=== PATIENT | female | born 1965 | race Asian ===

== ENCOUNTER 2020-07-01 11:45 | Observation (INO) | payer OTHER ==
[~2020-07-01] VITALS: Ht 165.1 cm; Wt 63.5 kg
[2020-07-01 11:51] VITALS: Ht 165.1 cm; Wt 63.5 kg
--- NOTE | 2020-07-01 11:52 | NUR ---
PT REPORTS FEELING A SHARP POKING SENSATION INSIDE THROAT. SHE REPORTS EATING FISH ON MONDAY AND HAS FELT LIKE A BONE IS STUCK INSIDE HER THROAT. SHE HAS EATEN FOOD AND DRANK LIQUIDS SINCE THEN BUT STILL FEELS DISCOMFORT
--- NOTE | 2020-07-01 12:09 | NUR ---
MSE COMPLETED BY DR MITCHELL
--- NOTE | 2020-07-01 12:56 | NUR ---
PT RESTING COMFORTABLY ON GURNEY, PLACED ON PULSE OX O2 SAT 98% RESP E/U, RR 16
--- NOTE | 2020-07-01 15:03 | NUR ---
PT IS AAOX4, NAD NOTED, VITALS STABLE.
[2020-07-01 15:21] LABS: BASOPHIL % 0.2 % (0.2-1.3); PLATELET COUNT 205 x10^3mcL (179-408); RED CELL DISTRIBUTION WIDTH 14.4 % (12.3-17.7)
--- NOTE | 2020-07-01 15:22 | NUR ---
EXPLAINED TO PT IN [facility] THAT SHE WILL NEED GI CONSULT TO DISCUSS POC REGARDING FOREIGN BODY TO THROAT. PER DR PAULA LANDERS WILL BE ARRIVING TO ED IN LESS THAN 3 HRS. PT INFORMED OF SAME AND VERBALIZED UNDERSTANDING, STATING SHE WILL WAIT HERE.
[2020-07-01 15:23] LABS: CALCIUM 9.7 mg/dL (8.5-10.1); CARBON DIOXIDE 30.9 mmol/L (21-32); CHLORIDE SERUM 98 mmol/L (98-107); CREATININE SERUM 0.6 mg/dL (0.6-1.0); GFR1 > 60 mL/min; GLUCOSE SERUM 103 mg/dL (74-106); POTASSIUM SERUM 3.7 mmol/L (3.5-5.1); SODIUM SERUM 137 mmol/L (136-145)
--- NOTE | 2020-07-01 17:38 | NUR ---
DR LANDERS, GI SPECIALIST AT BEDSIDE. EXPLAINED PLANNED PROCEDURE TO PT. PT VERBALIZED UNDERSTANDING OF RISKS, BENEFITS, AND PROCEDURE ITSELF.
--- NOTE | 2020-07-01 19:04 | NUR ---
PT SIGNED CONSENT FOR PROCEDURE. TAKEN TO OR BY STAS LEYVA. PT AWAKE ALERT, RESP E/U, NO DISTRESS.
--- NOTE | 2020-07-01 20:46 | NUR ---
PATIENT CAME FROM OUTPATIENT TO [facility] FLOOR THROUGH [facility] ACCOMPANIED BY RN. PATIENT AMBULATED TO BED BY HERSELF. ON FULL LIQUID DIET, SHE WAS GIVEN WARM WATER. HER VITAL WAS CHECKED. TEMP 97.8; BP 157/88 (MAP 107); HR 80; RR 18; O2 SAT 94%. A/O X 4; [place] SPEAKING ONLY (NO FAROESE). UTILIZED [employer] EMBEDDED SOFTWARE DEVELOPMENT ENGINEER TO COMMUNICATE WITH HER. IV @ TRINO 2O G PATENT AND INTACT. WILL CONTACT FAMILY TO PICK HER UP.
[2020-07-01 20:50] VITALS: BP 146/68
--- NOTE | 2020-07-01 21:05 | NUR ---
FAMILY WAS CALLED. (HEMALATHA VALENTE) [phone]. SINHALA SPEAKING; UNABLE TO SPEAK EQUATORIAL GUINEAN. TRANSLATED BY RN ARVIN SORIANO. TO PICK PATIENT UP IN 30 MINUTES. SAID HE WAS ALREADY AT THE HOSPITAL TO WAITHING FOR THE PATIENT.
--- NOTE | 2020-07-01 21:18 | NUR ---
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 SHE WAS OKAY TO GET D/C. SOON SHE HEARD THAT SHE CHANGED HER CLOTHES IMMEDIATELY. NURSE TRIED TO RECHECK HER VITAL SIGNS; SHE REFUSED. PATIENT WAS GIVEN DISCHARGED INFORMATION SHE WAS READY TO LEAVE THE HOSPITAL. HER IV WAS D/C. HER ARM BAND WAS REMOVED. INSTRUCTION TO UMB THE PAIN ON THE TROAT WAS GIVEN: GARGLE AND USE LOZENGES. ALL PATIENT BELONGING WITH HER WHEN SHE LEFT. ACCOMPANIED THE PATIENT DOWN TO THE PARKING LOT WHERE SHE WAS PICKED UP BY HER .
== END 2020-07-01 21:18 | disposition home or self-care (01) ==
LOC: ED 11:45 → MU 17:05
PROVIDERS: Specialist; ADMIT Internal Medicine; ATTEND Internal Medicine
DX: T17.228A Food in pharynx causing other injury, initial encounter (principal); W45.8XXA Other foreign body or object entering through skin, initial encounter; Y93.89 Activity, other specified; Y92.89 Other specified places as the place of occurrence of the external cause; Y99.8 Other external cause status; Z20.822 Contact with and (suspected) exposure to COVID-19
CPT/HCPCS: 43235; G0378; J0330; J2405; J2704; J2710; J3010; J3490; J7120

== ENCOUNTER 2020-07-03 18:39 | Emergency (ER) | payer OTHER ==
[~2020-07-03] VITALS: Ht 165.1 cm; Wt 62.6 kg
[2020-07-03 18:56] VITALS: Ht 165.1 cm; Wt 62.6 kg
[2020-07-03 19:47] LABS: CALCIUM 8.9 mg/dL (8.5-10.1); CARBON DIOXIDE 26.6 mmol/L (21-32); CHLORIDE SERUM 100 mmol/L (98-107); CREATININE SERUM 0.5 mg/dL (0.6-1.0); GFR1 > 60 mL/min; GLUCOSE SERUM 114 mg/dL (74-106); POTASSIUM SERUM 3.7 mmol/L (3.5-5.1); SODIUM SERUM 134 mmol/L (136-145)
[2020-07-03 19:52] LABS: ALBUMIN 3.6 g/dL (3.4-5.0); ALKALINE PHOSPHATASE 62 U/L (46-116); ALT/SGPT 27 U/L (14-59); AST/SGOT 26 U/L (15-37); BASOPHIL % 0.3 % (0.2-1.3); BILIRUBIN TOTAL 0.8 mg/dL (0.20-1.00); PLATELET COUNT 199 x10^3mcL (179-408); RED CELL DISTRIBUTION WIDTH 14.3 % (12.3-17.7); TOTAL PROTEIN, SERUM 7.7 g/dL (6.4-8.2)
[2020-07-03] MEDS ORDERED: CLEOCIN HCL300 MG PO (22:58)
[2020-07-03] MEDS ORDERED: MOT800 PO (22:58)
[2020-07-03] MEDS ORDERED: AUGMENTIN 875-1 EACH PO (22:58)
[2020-07-03] MEDS ORDERED: ONDANSETRON4 M3 PO (22:58)
[2020-07-03 23:14] VITALS: BP 120/66
== END 2020-07-03 23:14 | disposition home or self-care (01) ==
LOC: ED 18:39
PROVIDERS: Emergency Medicine
DX: R50.9 Fever, unspecified (principal); R09.89 Other specified symptoms and signs involving the circulatory and respiratory systems; T17.2 Foreign body in pharynx; X58.XXXD Exposure to other specified factors, subsequent encounter
CPT/HCPCS: 83880; J0295; J1200; J1610; J1885; J2405; J3490; J7030; J7040; Q9967